=== PATIENT | male | born 1950 | race Caucasian/White ===

== ENCOUNTER 2016-11-15 13:31 | Inpatient (IN) | payer MEDICARE ==
[~2016-11-15] VITALS: Ht 165.1 cm; Wt 66.5 kg
[2016-11-15] VITALS (18 sets, daily range): BP systolic 79–145; BP diastolic 52–64; PULSE 74–93; RESP 15–25; Ht 165.1 cm; Wt 66.5 kg
[2016-11-15] MEDS ORDERED: PANTOPRAZOLE IV 80 MG in SOD CHLORIDE 0.9% 100 ML IVPB STA (13:42)
[2016-11-15] MEDS ORDERED: SOD CHLORIDE 0.9% 1,000 ML IV STA (13:42)
[2016-11-15] MEDS ORDERED: PANTOPRAZOLE IV 80 MG in SOD CHLORIDE 0.9% 100 ML IV STA (13:42)
[2016-11-15 13:56] LABS: ADD SCAN DIFF NO
[2016-11-15 14:00] LABS: BASOPHILS % 0.5 % (0.0-2.0); EOSINOPHILS # 0.1 10^3/ul (0.0-0.5); LYMPHOCYTES # 1.5 10^3/ul (0.8-2.9); LYMPHOCYTES % 19.8 % (15.0-51.0); MEAN CORPUSCULAR HEMOGLOBIN 32.4 pg (29.0-33.0); MEAN CORPUSCULAR HGB CONC 34.4 g/dl (32.0-37.0); MEAN CORPUSCULAR VOLUME 94.1 fl (82.0-101.0); MEAN PLATELET VOLUME 10.3 fl (7.4-10.4); MONOCYTE # 0.5 10^3/ul (0.3-0.9); MONOCYTES % 6.4 % (0.0-11.0); NEUTROPHIL # 5.6 10^3/ul (1.6-7.5); NEUTROPHILS % 71.9 % (39.0-77.0); PLATELET COUNT 336 10^3/UL (140-415); RED CELL DISTRIBUTION WIDTH 12.2 % (11.5-14.5); WHITE BLOOD COUNT 7.8 10^3/ul (4.8-10.8)
[2016-11-15 14:14] LABS: INR 1.05; PARTIAL THROMBOPLASTIN TIME 23.3 Sec (25.0-35.0); PROTIME 13.7 Sec (12.2-14.2); PT RATIO 1.1
--- NOTE | 2016-11-15 14:18 | RADRPT ---
PROCEDURE: XR Chest. CLINICAL INDICATION: chest pain, upper GI bleed TECHNIQUE: Single frontal view of the chest was obtained COMPARISON: None FINDINGS: The heart and mediastinum are within normal limits. The lungs are clear. There is no pleural effusion or pneumothorax. RPTAT: AA IMPRESSION: No acute disease. .Rigo Harper MD, MD Date Time Electronically viewed and signed by .Rigo Harper MD, on 11/15/2016 14:18 .S/
[2016-11-15 14:19] LABS: SODIUM 138 mmol/L (135-144)
[2016-11-15 14:21] LABS: BILIRUBIN,INDIRECT 0.5 mg/dl (0-1.1); BILIRUBIN,TOTAL 0.5 mg/dl (0.2-1.3); CARBON DIOXIDE 23 mmol/L (21-31); CHLORIDE 100 mmol/L (97-110); CREATININE 0.91 mg/dl (0.61-1.24)
[2016-11-15 14:22] LABS: ALANINE AMINOTRANSFERASE 32 IU/L (13-69); ALBUMIN/GLOBULIN RATIO 1.53; ALKALINE PHOSPHATASE 60 IU/L (42-121); ANION GAP 20 (8-16); ASPARTATE AMINO TRANSFERASE 20 IU/L (15-46); BLOOD UREA NITROGEN 47 mg/dl (7-20); CALCIUM 9.1 mg/dl (8.4-10.2); GLUCOSE 299 mg/dl (70-220); TOTAL PROTEIN 6.6 g/dl (6.1-8.1)
[2016-11-15] MEDS ORDERED: METF-382 PO (14:23)
[2016-11-15] MEDS ORDERED: METO-429 PO (14:24)
[2016-11-15] MEDS ORDERED: GLIP-95 PO (14:24)
[2016-11-15] MEDS ORDERED: ASPI-664 PO (14:25)
[2016-11-15 14:34] LABS: TROPONIN-I < 0.012 ng/ml (0.00-0.12)
--- NOTE | 2016-11-15 15:44 | ERA ---
ER Documentation Chief Complaint Date/Time DATE: 11/15/16 TIME: 15:43 Chief Complaint vomiting blood and weakness HPI This is a 63-year-old male who initially told me he does not drink then when the daughter shows up admitted that he drinks at least 6 beers a night. The patient is complaining of some vomiting blood yesterday in the evening 2-3 is bright red. He also had bright red vomit this morning 2. Last vomiting episode was around 7 AM. Says he had black stool yesterday as well. Says he has absolutely no abdominal pain at all no chest pain shortness of breath no dizziness or syncope. He says he takes an aspirin a day but no NSAIDs ROS All systems reviewed and are negative except as per history of present illness. Medications Home Meds Reported Medications Aspirin (Low Dose Aspirin) 81 Mg Tablet.dr, 81 MG PO DAILY, #30 TAB 11/15/16 Metoprolol Tartrate* (Lopressor*) 50 Mg Tab, 50 MG PO BID, #60 TAB 11/15/16 Glipizide* (Glipizide*) 10 Mg Tablet, 10 MG PO BID, TAB 11/15/16 Metformin Hcl* (Metformin Hcl*) 500 Mg Tablet, 1000 MG PO WITH BREAKFAST DINNE, #30 TAB 11/15/16 Allergies Allergies: Coded Allergies: No Known Allergy (Unverified , 11/15/16) PMhx/Soc History of Surgery: Yes (colon re-section- 2013) Anesthesia Reaction: No Hx Neurological Disorder: No Hx Respiratory Disorders: No Hx Cardiac Disorders: Yes (htn) Hx Psychiatric Problems: No Hx Miscellaneous Medical Probl: Yes (colon CA 2013, DM) Hx Alcohol Use: Yes (beer everyday) Hx Substance Use: No Hx Tobacco Use: No Smoking Status: Never smoker FmHx Family History: No coronary disease Physical Exam Vitals Vital Signs Date Time Temp Pulse Resp B/P Pulse Ox O2 Delivery O2 Flow Rate FiO2 11/15/16 16:05 75 17 100/62 100 Room Air 11/15/16 15:17 68 17 96/55 100 Room Air 11/15/16 14:04 72 17 111/61 100 Room Air 11/15/16 13:34 97.6 74 18 106/60 99 Physical Exam Const: Well-developed, well-nourished Head: Atraumatic, normocephalic Eyes: Normal Conjunctiva, PERRLA, EOMI, normal sclera, no nystagmus ENT: Normal External Ears, Nose and Mouth, moist mucus membranes. Neck: Full range of motion. No meningismus, no lymphadenopathy. Resp: Clear to auscultation bilaterally, no wheezing, rhonchi, rales Cardio: Regular rate and rhythm, no murmurs, S1 S2 present Abd: Soft, non tender x 4, non distended. Normal bowel sounds, no guarding or rebound, no pulsitile abdominal masses or bruits Skin: No petechiae or rashes, no ecchymosis , no maculopapular rash Back: No midline or flank tenderness Ext: No cyanosis, or edema, FROM x 4, normal inspection, neurovascularly intact x 4 Neur: Awake and alert, STR 5/5 x 4, sensation intact x 4, no focal findings, cerebellum intact Psych: Normal Mood and Affect Result Diagram: 11/15/16 1345 11/15/16 1345 Results 24 hrs Laboratory Tests Test 11/15/16 13:45 Activated Partial Thromboplast Time 23.3Sec Alanine Aminotransferase (ALT/SGPT) 32IU/L Albumin 4.0g/dl Albumin/Globulin Ratio 1.53 Alkaline Phosphatase 60IU/L Anion Gap 20 Aspartate Amino Transf (AST/SGOT) 20IU/L Basophils # 0.010^3/ul Basophils % 0.5% Blood Urea Nitrogen 47mg/dl Calcium Level 9.1mg/dl Carbon Dioxide Level 23mmol/L Chloride Level 100mmol/L Creatinine 0.91mg/dl Direct Bilirubin 0.00mg/dl Eosinophils # 0.110^3/ul Eosinophils % 1.0% Globulin 2.60g/dl Glucose Level 299mg/dl Hematocrit 32.0% Hemoglobin 11.0g/dl INR International Normalized Ratio 1.05 Indirect Bilirubin 0.5mg/dl Lymphocytes # 1.510^3/ul Lymphocytes % 19.8% Mean Corpuscular Hemoglobin 32.4pg Mean Corpuscular Hemoglobin Concent 34.4g/dl Mean Corpuscular Volume 94.1fl Mean Platelet Volume 10.3fl Monocytes # 0.510^3/ul Monocytes % 6.4% Neutrophils # 5.610^3/ul Neutrophils % 71.9% Nucleated Red Blood Cells # 0.010^3/ul Nucleated Red Blood Cells % 0.0/100WBC Platelet Count 60695^3/UL Potassium Level 5.0mmol/L Prothrombin Time 13.7Sec Prothrombin Time Ratio 1.1 Red Blood Count 3.4010^6/ul Red Cell Distribution Width 12.2% Sodium Level 138mmol/L Total Bilirubin 0.5mg/dl Total Protein 6.6g/dl Troponin I < 0.012ng/ml White Blood Count 7.810^3/ul Current Medications Medications (Trade) Dose Ordered Sig/Emma Route PRN Reason Start Time Stop Time Status Last Admin Dose Admin Sodium Chloride 1,000 ml @ 1,000 mls/hr Q1H STAT IV 11/15/16 13:42 11/15/16 14:41 DC 11/15/16 14:28 Pantoprazole 80 mg/Sodium Chloride 100 ml @ 400 mls/hr ONCE STAT IVPB 11/15/16 13:42 11/15/16 13:56 DC 11/15/16 14:28 Pantoprazole 80 mg/Sodium Chloride 100 ml @ 10 mls/hr ONCE STAT IV 11/15/16 13:42 11/15/16 23:41 11/15/16 15:17 Sodium Chloride 1,000 ml @ 1,000 mls/hr Q1H ONCE IV 11/15/16 16:30 11/15/16 17:29 UNV Octreotide Acetate 50 mcg/ Sodium Chloride 26 ml @ 100 mls/hr Q16M STAT IVPB 11/15/16 16:07 11/15/16 16:22 Octreotide Acetate/Sodium Chloride (Sandostatin/NS) 50 ml @ 5 mls/hr ONCE STAT IV 11/15/16 16:07 11/16/16 02:06 Procedures/MDM PROCEDURE: XR Chest. CLINICAL INDICATION: chest pain, upper GI bleed TECHNIQUE: Single frontal view of the chest was obtained COMPARISON: None FINDINGS: The heart and mediastinum are within normal limits. The lungs are clear. There is no pleural effusion or pneumothorax. RPTAT: AA IMPRESSION: No acute disease. .Rigo Harper MD, MD Date Time Electronically viewed and signed by .Rigo Harper MD, on 11/15/2016 14: 18 .S/ CC: TONI SCHUSTER DO Patient was put on a Protonix drip and octreotide drip. I paged Dr. neri of GI and will get him on board Patient will be admitted for upper endoscopy. His vital signs are currently stable with blood pressure 100/62 and pulse is 77. Departure Diagnosis: Primary Impression: Upper GI bleed Condition: Stable TONI SCHUSTER DO Nov 15, 2016 15:44
[2016-11-15] MEDS ORDERED: OCTREOTIDE 50 MCG in SOD CHLORIDE 0.9% 25 ML IVPB STA (16:07)
[2016-11-15] MEDS ORDERED: OCTREOTIDE 500 MCG in SOD CHLORIDE 0.9% 49 ML IV STA (16:07)
[2016-11-15] MEDS ORDERED: SOD CHLORIDE 0.9% 1,000 ML IV SCH (16:27)
[2016-11-15] MEDS ORDERED: ONDANSETRON 4 MG INJ IV PRN (16:30)
[2016-11-15] MEDS ORDERED: SOD CHLORIDE 0.9% 1,000 ML IV ONE (16:30)
[2016-11-15] MEDS ORDERED: ACETAMINOPHEN 325 MG TAB PO PRN (16:30)
[2016-11-15] MEDS ORDERED: PROPOFOL 40 ML ONE (17:51)
[2016-11-15] MEDS ORDERED: EPHEDrine SULFATE 50 MG/5 ML SYG ONE (17:57)
--- NOTE | 2016-11-15 17:58 | HP ---
DATE OF ADMISSION: 11/15/2016 PRESENTING COMPLAINT: Bloody vomit. HISTORY OF PRESENTING COMPLAINT: Mr. Sanabria is a 63-year-old male who has a past medical history of high blood pressure and diabetes who presents to the emergency room today, brought in by ambulance, after he had passed out on the kitchen floor. The patient reports that over the last 2 days he has been having vomiting and then ends up with bright red blood in his vomit as well as productio n of blackish vomitus. He is a chronic alcoholic and he drinks about 4 beers about 5 days a week. However, the patient does not feel like he has a drinking problem. He has never been told he has li renetta disease from alcoholism. He has never had hematemesis before. However, has had a history of bl ood in his stool and was diagnosed with colon cancer for which he had a colonic resection. He, sunny jackson, did not require chemotherapy or radiation therapy. This was back in 2013. His last visit to [facility] oncologist was 6 months ago where he was given a clean bill of health. PAST MEDICAL HISTORY: 1. Colon cancer. 2. Diabetes. 3. High blood pressure. 4. Dyslipidemia. PAST SURGICAL HISTORY: Colonic resection for colon cancer. ALLERGIES: HE HAS NO KNOWN DRUG ALLERGIES. SOCIAL HISTORY: He has drunk alcohol for as long as he can remember at the quantity described above . He only drinks beer and does not drink hard liquor. Denies tobacco use. Occasionally will smoke a weed joint like once every couple of months just to relax him, but no use of any illicit drugs. REVIEW OF SYSTEMS: A 12-point review of system was done. Pertinent findings as noted in HPI. FAMILY HISTORY: Noncontributory. HOME MEDICATIONS: 1. Glipizide 10 mg p.o. b.i.d. 2. Metoprolol 50 mg p.o. b.i.d. 3. Metformin 1 gram b.i.d. 4. Aspirin 81 daily. The patient receives his care at the [facility]. PHYSICAL EXAMINATION: VITAL SIGNS: Temperature 97.6, pulse 75, respirations 17, blood pressure 100/62, saturations 100% o n room air. GENERAL: He was comfortable, alert and oriented, in no distress. HEENT: Head is normocephalic with equal, round, and reactive pupils. Mucous membranes are moist. Posterior pharynx was clear of erythema and exudate. He did have conjunctival pallor. NECK: Supple without JVD. CHEST: Clear to auscultation with mildly reduced air entry bilaterally. CARDIOVASCULAR: S1 and S2, no murmurs. ABDOMEN: Soft, nontender, nondistended with normoactive bowel sounds present. EXTREMITIES: There is no lower extremity edema. Surgical scar on the abdomen well healed. NEUROLOGIC: He had no focal deficits. SKIN: Devoid of rash or jaundice. PSYCHIATRIC: He was calm, cooperative with exam. LABORATORY VALUES: His hemoglobin was stable at 11.0 with a normocytic normochromic picture. Lydia l white count and normal platelet count. Chemistry: His serum glucose was elevated at 299, anion g ap was mildly elevated and BUN was 47. The rest of his LFTs unremarkable. First troponin is negati ve. Coag profile was not suggestive of a coagulopathy. IMAGING: Chest x-ray done in the emergency room was essentially unremarkable. EKG was normal sinus rhythm with a rate of 81, no evidence of acute ischemic abnormality. ASSESSMENT: 1. A 63-year-old male who presents with two day history of hematemesis. 2. Near syncopal episode secondary to #1. 3. Heavy alcohol use/abuse. 4. Occasional marijuana use. 5. Diabetes mellitus type 2 with suboptimal control. 6. High blood pressure with good control. 7. Reported history of dyslipidemia. 8. History of colon cancer in 2014 status post colonic resection. PLAN: The plan is to admit the patient to a medical surgical floor and get GI consultation for poss ible EGD and may be colonoscopy. Gastroenterology consultation for possible EGD. I will get a stoo l occult blood test done and the patient might require a CT of the abdomen and pelvis. Patient has h istory of colon cancer; however, I would defer to GI on this. For now he will be kept n.p.o. and as such, his on oral hypoglycemics will be put on hold and he will be on a sliding scale regimen only. We will resume his antihypertensive depending on his blood pressure. Hold aspirin for now. Hold anticoagulation for now. Use intravenous Protonix. I do not think the patient requires a Protonix drip right about now and essentially see how he does. We will have a low threshold to start simvast atin if indicated. Also keep a close eye on his coag profile. Plan of care has been discussed with the patient and his son. Questions have been answered. For pr ophylaxis is going to be on SCDs and Protonix. Dictated By: BUCK DERAS MD BA/NTS Conf#: [id number] DID#: [id number]
[2016-11-15] MEDS ORDERED: DEXTROSE 50% 50 ML SYRINGE IV PRN ×2 (18:00)
[2016-11-15] MEDS ORDERED: GLUCAGON 1 MG INJ IM PRN (18:00)
[2016-11-15] MEDS ORDERED: PANTOPRAZOLE 40 MG INJ IV SCH (18:00)
[2016-11-15] MEDS ORDERED: GLUCOSE GEL 15 GRAM TUBE PO PRN ×2 (18:00)
[2016-11-15] MEDS ORDERED: GLUCOSE GEL 15 GRAM TUBE BUCCAL PRN (18:00)
--- NOTE | 2016-11-15 18:10 | CONS ---
Date/Time of Note Date/Time of Note DATE: 11/15/16 TIME: 18:05 Assessment/Plan Assessment/Plan Additional Assessment/Plan Acute anemia Evaluate GI bleed versus chronic iron deficiency vs other etiology Monitor H&H every 8 hours, transfuse 2 units for hemoglobin less than 7.5 Monitor labs Iron profile Continue PPI and Octreotide drips EGD if clinically indicated, pt advised of R/B/A to procedure and provides informed consent to proceed Hypertension Management per Primary Type 2 diabetes Management per Primary Further recommendations depend on clinical course Patient seen in collaboration with Dr. Gómez Consultation Date/Type/Reason Admit Date/Time Nov 15, 2016 at 16:28 Type of Consultation: Gastroenterology Reason for Consultation Anemia Hx of Present Illness Mr. Titus Sanabria is a 63-year-old male that presented to the ED with complaints of hematemesis and melena stools 1 day. Patient reports first episode last night of hematemesis. Patient also reports a few days of melena stools prior to this episode. Patient also reports another episode of hematemesis earlier today. Patient reports drinking a beer prior to episode yesterday. Patient denies fever, chills, nausea, abdominal pain, diarrhea, previous episode, chest pain, and shortness of breath.. Patient has a past medical history of well-controlled hypertension and diabetes. At bedside advised patient of risks/benefits alternatives to EGD and he provides informed consent to proceed with procedure. Past Medical History Medical History: diabetes, hypertension Past Surgical History Past Surgical Hx: no surgical history Social History Alcohol Use: other (Per patient only drinks a few beers per previous note up to 6 beers per day) Smoking Status: Never smoker Exam/Review of Systems Vital Signs Vitals Vital Signs Date Time Temp Pulse Resp B/P Pulse Ox O2 Delivery O2 Flow Rate FiO2 11/15/16 17:56 74 18 113/63 18 Room Air 11/15/16 13:34 97.6 Exam Constitutional: alert, oriented, well developed Psych: nl mood/affect Head: normocephalic Eyes: EOMI, nl conjunctiva, nl lids ENMT: nl external ears & nose, nl lips & teeth, nl nasal mucosa & septum Respiratory: clear to auscultation, normal air movement Cardiovascular: regular rate and rhythm Gastrointestinal: soft, non-tender Musculoskeletal: nl extremities to inspection Neurological: BROOCH AND BRACELET MAKER II-XII intact Results Result Diagram: 11/15/16 1345 11/15/16 1345 Results 24 hrs Laboratory Tests Test 11/15/16 13:45 Activated Partial Thromboplast Time 23.3 L Alanine Aminotransferase (ALT/SGPT) 32 Albumin 4.0 Albumin/Globulin Ratio 1.53 Alkaline Phosphatase 60 Anion Gap 20 H Aspartate Amino Transf (AST/SGOT) 20 Basophils # 0.0 Basophils % 0.5 Blood Urea Nitrogen 47 H Calcium Level 9.1 Carbon Dioxide Level 23 Chloride Level 100 Creatinine 0.91 Direct Bilirubin 0.00 Eosinophils # 0.1 Eosinophils % 1.0 Globulin 2.60 Glucose Level 299 H Hematocrit 32.0 L Hemoglobin 11.0 L INR International Normalized Ratio 1.05 Indirect Bilirubin 0.5 Lymphocytes # 1.5 Lymphocytes % 19.8 Mean Corpuscular Hemoglobin 32.4 Mean Corpuscular Hemoglobin Concent 34.4 Mean Corpuscular Volume 94.1 Mean Platelet Volume 10.3 Monocytes # 0.5 Monocytes % 6.4 Neutrophils # 5.6 Neutrophils % 71.9 Nucleated Red Blood Cells # 0.0 Nucleated Red Blood Cells % 0.0 Platelet Count 336 Potassium Level 5.0 Prothrombin Time 13.7 Prothrombin Time Ratio 1.1 Red Blood Count 3.40 L Red Cell Distribution Width 12.2 Sodium Level 138 Total Bilirubin 0.5 Total Protein 6.6 Troponin I < 0.012 White Blood Count 7.8 Medications Medications Current Medications Sodium Chloride (NS) 1,000 ml @ 80 mls/hr [id number] IV ; Start 11/15/16 at 16:27 ; Stop 11/16/16 at 04:56 Pantoprazole 40 mg 40 mg BID@06,18 IV ; Start 11/15/16 at 18:00 Sodium Chloride (NS) 1,000 ml @ 100 mls/hr Q10H IV ; Start 11/15/16 at 17:00 Insulin Aspart (Novolog Insulin Pen) NOVOLOG *MODERATE* ALGORI... Q4 SC ; Start 11/15/16 at 17:00 Metoprolol Tartrate (Lopressor) 50 mg BID PO ; Start 11/15/16 at 21:00 Miscellaneous Information 1 ea NOTE XX ; Start 11/15/16 at 18:00 Glucose (Glutose) 15 gm Q15M PRN PO DECREASED GLUCOSE; Start 11/15/16 at 18:00 Glucose (Glutose) 22.5 gm Q15M PRN PO DECREASED GLUCOSE; Start 11/15/16 at 18: 00 Dextrose (D50w Syringe) 25 ml Q15M PRN IV DECREASED GLUCOSE; Start 11/15/16 at 18:00 Dextrose (D50w Syringe) 50 ml Q15M PRN IV DECREASED GLUCOSE; Start 11/15/16 at 18:00 Glucagon (Glucagen) 1 mg Q15M PRN IM DECREASED GLUCOSE; Start 11/15/16 at 18:00 Glucose (Glutose) 15 gm Q15M PRN BUCCAL DECREASED GLUCOSE; Start 11/15/16 at 18 :00 FRANNY CORRIGAN Nov 15, 2016 18:10
[2016-11-15] MEDS: INSULIN ASPART [NOVOLOG] 3 ML PEN SC SCH ×2 (19:48→20:05)
[2016-11-15] MEDS: SOD CHLORIDE 0.9% 1,000 ML IV SCH (20:15)
[2016-11-15] MEDS: METOPROLOL 50 MG TAB PO SCH (20:16)
[2016-11-15] MEDS: PANTOPRAZOLE IV 80 MG in SOD CHLORIDE 0.9% 100 ML IV SCH (21:01)
[2016-11-16] VITALS (12 sets, daily range): BP systolic 104–146; BP diastolic 53–65; PULSE 63–76; RESP 15–19
[2016-11-16] MEDS: METOCLOPRAMIDE 10 MG INJ IV SCH ×4 (00:17→17:12)
[2016-11-16] MEDS: INSULIN ASPART [NOVOLOG] 3 ML PEN SC SCH ×6 (00:26→20:28)
[2016-11-16 01:07] LABS: HEMOGLOBIN 7.3 g/dl (14.0-18.0)
[2016-11-16] MEDS: SOD CHLORIDE 0.9% 1,000 ML IV SCH ×3 (03:00→14:21)
[2016-11-16] MEDS: PANTOPRAZOLE IV 80 MG in SOD CHLORIDE 0.9% 100 ML IV SCH ×2 (04:50→14:47)
[2016-11-16 06:18] LABS: HEMATOCRIT 20.8 % (42.0-52.0); HEMOGLOBIN 7.1 g/dl (14.0-18.0)
--- NOTE | 2016-11-16 06:26 | GILP ---
DATE OF PROCEDURE: DATE: ____ NAME OF PROCEDURE: Esophagogastroduodenoscopy with endoclip placement. SURGEON: Vivien Gómez MD. PREOPERATIVE DIAGNOSIS: ____ POSTOPERATIVE DIAGNOSIS: ____ HISTORY AND INDICATIONS: ____ PREMEDICATION: Monitored anesthesia care by anesthesiologist. INSTRUMENT USED: Olympus panendoscope. TECHNIQUE: After informed consent, with the patient/relatives understanding the procedure, its indic ations, potential risks and complications, including but not limited to: allergic reaction, bleeding , perforation or infection, and after all pertinent questions were answered to the patients satisfac tion, the patient/relatives signed witnessed informed consent. Following this, premedication was administered slowly IV push under careful cardiovascular and respi ratory monitoring with pulse oximetry, automatic blood pressure and surveillance system monitor. Once the sedative effect was achieved the patient was place in the left lateral decubitus, the panen doscope was introduced and advanced under visual control. Careful examination of the upper gastrointestinal tract, both on insertion as well as withdrawal of the instrument disclosed the following findings: ESOPHAGUS: The esophagus shows erythema and edema in the distal esophagus, superficial ulceration i s also present. There is a clear Keerthi-Early tear with a clot. No active bleeding is present. STOMACH: Upon entrance to the stomach, air was insufflated, the gastric escamilla distended normally. There was old blood in the greater curvature of the stomach which could not be evacuated entirely. Extensive lavage was applied. No gross lesions identified in the stomach. PYLORUS: The pylorus appears patent and within normal limits. DUODENUM: Unremarkable. The duodenal bulb and second portion of duodenum with no bleeding or lesio n identified. At this point, the instrument was brought back into the area of the esophagus and an endoclip was ap plied to the area of Keerthi-Early securing the area with no residual bleeding. The instrument was then withdrawn, the patient tolerated the procedure well and was transfer out of the endoscopy suite awake, and in good condition to continue recovery under observation IMPRESSION: Keerthi-Early tear post endoscopic endoclip placement. PLAN: 1. The patient will be placed on Protonix and octreotide drips. 2. Reglan 10 mg IV push. 3. Monitor H and H and transfuse as necessary. Dictated By: VIVIEN GÓMEZ MS/PRAKASH Conf#: [id number] DID#: [id number]
[2016-11-16] MEDS ORDERED: SOD CHLORIDE 0.9% 250 ML IV* ONE (08:42)
[2016-11-16] MEDS: METOPROLOL 50 MG TAB PO SCH ×2 (09:05→20:26)
[2016-11-16 10:19] LABS: ADD SCAN DIFF NO
[2016-11-16 10:24] LABS: BASOPHILS % 0.4 % (0.0-2.0); EOSINOPHILS # 0.1 10^3/ul (0.0-0.5); EOSINOPHILS % 1.6 % (0.0-7.0); HEMATOCRIT 20.4 % (42.0-52.0); LYMPHOCYTES # 1.5 10^3/ul (0.8-2.9); LYMPHOCYTES % 30.7 % (15.0-51.0); MEAN CORPUSCULAR HEMOGLOBIN 32.7 pg (29.0-33.0); MEAN CORPUSCULAR HGB CONC 34.3 g/dl (32.0-37.0); MEAN CORPUSCULAR VOLUME 95.3 fl (82.0-101.0); MEAN PLATELET VOLUME 10.3 fl (7.4-10.4); MONOCYTE # 0.5 10^3/ul (0.3-0.9); MONOCYTES % 10.3 % (0.0-11.0); NEUTROPHIL # 2.8 10^3/ul (1.6-7.5); NEUTROPHILS % 56.8 % (39.0-77.0); PLATELET COUNT 221 10^3/UL (140-415); RED BLOOD COUNT 2.14 10^6/ul (4.70-6.10); RED CELL DISTRIBUTION WIDTH 12.5 % (11.5-14.5)
[2016-11-16 10:33] LABS: ALBUMIN 2.8 g/dl (3.3-4.9)
[2016-11-16 10:34] LABS: INR 1.04; POTASSIUM 4.1 mmol/L (3.5-5.1); PROTIME 13.6 Sec (12.2-14.2); PT RATIO 1.1
[2016-11-16 10:36] LABS: CREATININE 0.8 mg/dl (0.61-1.24)
[2016-11-16 10:37] LABS: CALCIUM 7.9 mg/dl (8.4-10.2); CHOL/HDL RATIO 2.8 RATIO; MAGNESIUM 1.7 mg/dl (1.7-2.5); PHOSPHORUS 1.9 mg/dl (2.5-4.9)
--- NOTE | 2016-11-16 11:40 | PN ---
Date/Time of Note Date/Time of Note DATE: 11/16/16 TIME: 11:32 Assessment/Plan VTE Prophylaxis VTE Prophylaxis Intervention: SCD's Lines/Catheters IV [facility]from [facility]): Peripheral IV Urinary Cath still in place: No Assessment/Plan Assessment/Plan 1. Acute Upper GI bleeding 2. Near syncopal episode secondary to #1. 3. Heavy alcohol use/abuse. 4. Occasional marijuana use. 5. Diabetes mellitus type 2 with suboptimal control. 6. High blood pressure with good control. 7. Reported history of dyslipidemia. 8. History of colon cancer in 2014 status post colonic resection. Plan: Protonix gtt- Hb dropped to 7.0- plan is to tranfuse 2 units PRBC tolerating diet, change accucheck to AC and HS S/p GI consult IVF as ordered - decrease rate to 75 cc/hr SCD for DVT prophylaxis Subjective 24 Hr Interval Summary Free Text/Dictation pt stable, on IV protonix drip , Exam/Review of Systems Vital Signs Vitals Vital Signs Date Time Temp Pulse Resp B/P Pulse Ox O2 Delivery O2 Flow Rate FiO2 11/16/16 11:30 98.8 64 18 134/63 99 11/16/16 07:48 Room Air 11/15/16 18:03 5 Intake and Output 11/15/16 11/15/16 11/16/16 15:00 23:00 07:00 Intake Total 2100 ml 1310 ml Balance 2100 ml 1310 ml Exam GENERAL: He was comfortable, alert and oriented, in no distress. NECK: Supple without JVD. CHEST: Clear to auscultation with mildly reduced air entry bilaterally. CARDIOVASCULAR: S1 and S2, no murmurs. ABDOMEN: Soft, nontender, nondistended with normoactive bowel sounds present. EXTREMITIES: There is no lower extremity edema. Surgical scar on the abdomen well healed. NEUROLOGIC: He had no focal deficits. SKIN: Devoid of rash or jaundice. PSYCHIATRIC: He was calm, cooperative with exam. Results Result Diagram: 11/16/16 0945 11/16/16 0945 Results 24 hrs Laboratory Tests Test 11/15/16 13:45 11/15/16 18:42 11/16/16 00:19 11/16/16 01:00 Activated Partial Thromboplast Time 23.3 L Alanine Aminotransferase (ALT/SGPT) 32 Albumin 4.0 Albumin/Globulin Ratio 1.53 Alkaline Phosphatase 60 Anion Gap 20 H Aspartate Amino Transf (AST/SGOT) 20 Basophils # 0.0 Basophils % 0.5 Blood Urea Nitrogen 47 H Calcium Level 9.1 Carbon Dioxide Level 23 Chloride Level 100 Creatinine 0.91 Direct Bilirubin 0.00 Eosinophils # 0.1 Eosinophils % 1.0 Globulin 2.60 Glucose Level 299 H Hematocrit 32.0 L 21.0 #L Hemoglobin 11.0 L 7.3 #L INR International Normalized Ratio 1.05 Indirect Bilirubin 0.5 Lymphocytes # 1.5 Lymphocytes % 19.8 Mean Corpuscular Hemoglobin 32.4 Mean Corpuscular Hemoglobin Concent 34.4 Mean Corpuscular Volume 94.1 Mean Platelet Volume 10.3 Monocytes # 0.5 Monocytes % 6.4 Neutrophils # 5.6 Neutrophils % 71.9 Nucleated Red Blood Cells # 0.0 Nucleated Red Blood Cells % 0.0 Platelet Count 336 Potassium Level 5.0 Prothrombin Time 13.7 Prothrombin Time Ratio 1.1 Red Blood Count 3.40 L Red Cell Distribution Width 12.2 Sodium Level 138 Total Bilirubin 0.5 Total Protein 6.6 Troponin I < 0.012 White Blood Count 7.8 Bedside Glucose 218 161 Test 11/16/16 05:25 11/16/16 06:21 11/16/16 07:45 11/16/16 09:45 Hematocrit 20.8 L 20.4 L Hemoglobin 7.1 L 7.0 L Bedside Glucose 320 H 276 H Activated Partial Thromboplast Time 25.0 Albumin 2.8 #L Anion Gap 13 # Basophils # 0.0 Basophils % 0.4 Blood Urea Nitrogen 35 #H Calcium Level 7.9 L Carbon Dioxide Level 24 Chloride Level 108 Cholesterol Level 84 L Cholesterol/HDL Ratio 2.8 Creatinine 0.80 Eosinophils # 0.1 Eosinophils % 1.6 Glucose Level 147 # HDL Cholesterol 30 Hemoglobin A1c 7.7 H INR International Normalized Ratio 1.04 LDL Cholesterol, Calculated 23 Lymphocytes # 1.5 Lymphocytes % 30.7 Magnesium Level 1.7 Mean Corpuscular Hemoglobin 32.7 Mean Corpuscular Hemoglobin Concent 34.3 Mean Corpuscular Volume 95.3 Mean Platelet Volume 10.3 Monocytes # 0.5 Monocytes % 10.3 Neutrophils # 2.8 Neutrophils % 56.8 Nucleated Red Blood Cells # 0.0 Nucleated Red Blood Cells % 0.0 Phosphorus Level 1.9 L Platelet Count 221 # Potassium Level 4.1 Prothrombin Time 13.6 Prothrombin Time Ratio 1.1 Red Blood Count 2.14 #L Red Cell Distribution Width 12.5 Sodium Level 141 Triglycerides Level 154 H White Blood Count 5.0 # Medications Medications Current Medications Sodium Chloride (NS) 1,000 ml @ 100 mls/hr Q10H IV Last administered on 06:29; Admin Dose 100 MLS/HR; Start 11/15/16 at 17:00 Insulin Aspart (Novolog Insulin Pen) NOVOLOG *MODERATE* ALGORI... Q4 SC Last administered on 11/16/16 09:08; Admin Dose 8 UNIT; Start 11/15/16 at 17:00 Metoprolol Tartrate (Lopressor) 50 mg BID PO Last administered on 11/16/16 09: 05; Admin Dose 50 MG; Start 11/15/16 at 21:00 Miscellaneous Information 1 ea NOTE XX ; Start 11/15/16 at 18:00 Glucose (Glutose) 15 gm Q15M PRN PO DECREASED GLUCOSE; Start 11/15/16 at 18:00 Glucose (Glutose) 22.5 gm Q15M PRN PO DECREASED GLUCOSE; Start 11/15/16 at 18: 00 Dextrose (D50w Syringe) 25 ml Q15M PRN IV DECREASED GLUCOSE; Start 11/15/16 at 18:00 Dextrose (D50w Syringe) 50 ml Q15M PRN IV DECREASED GLUCOSE; Start 11/15/16 at 18:00 Glucagon (Glucagen) 1 mg Q15M PRN IM DECREASED GLUCOSE; Start 11/15/16 at 18:00 Glucose 15 gm 15 gm Q15M PRN BUCCAL DECREASED GLUCOSE; Start 11/15/16 at 18:00 Pantoprazole/ Sodium Chloride (Protonix Iv/NS) 100 ml @ 10 mls/hr Q10H IV Last administered on 11/16/16 04:50; Admin Dose 10 MLS/HR; Start 11/15/16 at 18 :30 Metoclopramide HCl (Reglan) 10 mg Q6 IV Last administered on 11/16/16 06:23; Admin Dose 10 MG; Start 11/16/16 at 00:00 ALONDRA TOBIAS MD Nov 16, 2016 11:40
[2016-11-17] VITALS (12 sets, daily range): BP systolic 120–154; BP diastolic 59–67; PULSE 62–85; RESP 18–20
[2016-11-17] MEDS: PANTOPRAZOLE IV 80 MG in SOD CHLORIDE 0.9% 100 ML IV SCH ×4 (00:12→21:07)
[2016-11-17] MEDS: METOCLOPRAMIDE 10 MG INJ IV SCH ×4 (00:12→17:56)
[2016-11-17] MEDS: SOD CHLORIDE 0.9% 1,000 ML IV SCH ×2 (04:02→10:21)
[2016-11-17] MEDS: METOPROLOL 50 MG TAB PO SCH ×2 (08:17→20:55)
[2016-11-17] MEDS: INSULIN ASPART [NOVOLOG] 3 ML PEN SC SCH ×4 (08:21→20:59)
[2016-11-17 09:03] LABS: ADD SCAN DIFF NO
[2016-11-17 09:06] LABS: BASOPHILS % 0.6 % (0.0-2.0); EOSINOPHILS # 0.2 10^3/ul (0.0-0.5); EOSINOPHILS % 3.1 % (0.0-7.0); HEMATOCRIT 26.2 % (42.0-52.0); LYMPHOCYTES # 1.9 10^3/ul (0.8-2.9); LYMPHOCYTES % 35.6 % (15.0-51.0); MEAN CORPUSCULAR HGB CONC 34.4 g/dl (32.0-37.0); MEAN CORPUSCULAR VOLUME 93.2 fl (82.0-101.0); MEAN PLATELET VOLUME 11.5 fl (7.4-10.4); MONOCYTE # 0.5 10^3/ul (0.3-0.9); NEUTROPHIL # 2.7 10^3/ul (1.6-7.5); NEUTROPHILS % 50.5 % (39.0-77.0); RED BLOOD COUNT 2.81 10^6/ul (4.70-6.10); RED CELL DISTRIBUTION WIDTH 13.1 % (11.5-14.5); WHITE BLOOD COUNT 5.4 10^3/ul (4.8-10.8)
[2016-11-17 09:14] LABS: PLATELET COUNT 168 10^3/UL (140-415)
[2016-11-17 09:28] LABS: ALBUMIN 3.3 g/dl (3.3-4.9); POTASSIUM 4.7 mmol/L (3.5-5.1)
[2016-11-17 09:30] LABS: CREATININE 0.67 mg/dl (0.61-1.24)
[2016-11-17 09:31] LABS: PHOSPHORUS 2.6 mg/dl (2.5-4.9)
--- NOTE | 2016-11-17 10:05 | CONS ---
Date/Time of Note Date/Time of Note DATE: 11/17/16 TIME: 10:03 Assessment/Plan Assessment/Plan Chief Complaint/Hosp Course Mr. Titus Sanabria is a 63-year-old male that presented to the ED with complaints of hematemesis and melena stools 1 day. Patient reports first episode last night of hematemesis. Patient also reports a few days of melena stools prior to this episode. Patient also reports another episode of hematemesis earlier today. Patient reports drinking a beer prior to episode yesterday. Patient denies fever, chills, nausea, abdominal pain, diarrhea, previous episode, chest pain, and shortness of breath.. Patient has a past medical history of well-controlled hypertension and diabetes. At bedside advised patient of risks/benefits alternatives to EGD and he provides informed consent to proceed with procedure. Problems: Additional Assessment/Plan Acute anemia Evaluate GI bleed versus chronic iron deficiency vs other etiology Monitor H&H every 8 hours, transfuse 2 units for hemoglobin less than 7.5 Monitor labs Continue PPI drips Continue Reglan 10 mg IV push every 6 hours EGD: 1. Keerthi-Early tear post endoscopic endoclip placement. Hypertension Management per Primary Type 2 diabetes Management per Primary Further recommendations depend on clinical course Patient seen in collaboration with Dr. Gómez Consultation Date/Type/Reason Admit Date/Time Nov 15, 2016 at 16:28 Initial Consult Date Type of Consultation: Gastroenterology 24 HR Interval Summary Free Text/Dictation Tolerating diet Hemoglobin stable Continue PPI drip and Reglan Can transition to PPI twice daily p.o. if hemoglobin stays stable Exam/Review of Systems Vital Signs Vitals Vital Signs Date Time Temp Pulse Resp B/P Pulse Ox O2 Delivery O2 Flow Rate FiO2 11/17/16 08:16 62 11/17/16 07:46 98.5 20 135/65 98 11/17/16 04:00 Room Air 11/15/16 18:03 5 Intake and Output 11/16/16 11/16/16 11/17/16 15:00 23:00 07:00 Intake Total 700 ml 1790 ml 1100 ml Output Total 700 ml 930 ml 500 ml Balance 0 ml 860 ml 600 ml Exam Constitutional: alert, oriented, well developed Psych: nl mood/affect Head: normocephalic Eyes: EOMI, nl conjunctiva, nl lids ENMT: nl external ears & nose, nl lips & teeth, nl nasal mucosa & septum Respiratory: clear to auscultation, normal air movement Cardiovascular: regular rate and rhythm Gastrointestinal: soft, non-tender Musculoskeletal: nl extremities to inspection Neurological: [employer] II-XII intact Results Result Diagram: 11/17/16 0835 11/17/16 0835 Results 24 hrs Laboratory Tests Test 11/16/16 11:55 11/16/16 17:10 11/16/16 20:25 11/17/16 07:34 Bedside Glucose 76 202 227 H 150 Test 11/17/16 08:35 Albumin 3.3 Anion Gap 15 Basophils # 0.0 Basophils % 0.6 Blood Urea Nitrogen 16 # Calcium Level 8.0 L Carbon Dioxide Level 21 Chloride Level 107 Creatinine 0.67 Eosinophils # 0.2 Eosinophils % 3.1 Glucose Level 169 Hematocrit 26.2 #L Hemoglobin 9.0 #L Lymphocytes # 1.9 Lymphocytes % 35.6 Mean Corpuscular Hemoglobin 32.0 Mean Corpuscular Hemoglobin Concent 34.4 Mean Corpuscular Volume 93.2 Mean Platelet Volume 11.5 H Monocytes # 0.5 Monocytes % 10.0 Neutrophils # 2.7 Neutrophils % 50.5 Nucleated Red Blood Cells # 0.0 Nucleated Red Blood Cells % 0.0 Phosphorus Level 2.6 Platelet Count 168 # Potassium Level 4.7 Red Blood Count 2.81 #L Red Cell Distribution Width 13.1 Sodium Level 138 White Blood Count 5.4 Medications Medications Current Medications Sodium Chloride (NS) 1,000 ml @ 50 mls/hr Q20H IV Last administered on 04:02; Admin Dose 50 MLS/HR; Start 11/15/16 at 17:00 Metoprolol Tartrate (Lopressor) 50 mg BID PO Last administered on 11/17/16 08: 17; Admin Dose 50 MG; Start 11/15/16 at 21:00 Miscellaneous Information 1 ea NOTE XX ; Start 11/15/16 at 18:00 Glucose (Glutose) 15 gm Q15M PRN PO DECREASED GLUCOSE; Start 11/15/16 at 18:00 Glucose (Glutose) 22.5 gm Q15M PRN PO DECREASED GLUCOSE; Start 11/15/16 at 18: 00 Dextrose (D50w Syringe) 25 ml Q15M PRN IV DECREASED GLUCOSE; Start 11/15/16 at 18:00 Dextrose (D50w Syringe) 50 ml Q15M PRN IV DECREASED GLUCOSE; Start 11/15/16 at 18:00 Glucagon (Glucagen) 1 mg Q15M PRN IM DECREASED GLUCOSE; Start 11/15/16 at 18:00 Glucose 15 gm 15 gm Q15M PRN BUCCAL DECREASED GLUCOSE; Start 11/15/16 at 18:00 Pantoprazole/ Sodium Chloride (Protonix Iv/NS) 100 ml @ 10 mls/hr Q10H IV Last administered on 11/17/16 00:12; Admin Dose 10 MLS/HR; Start 11/15/16 at 18 :30 Metoclopramide HCl (Reglan) 10 mg Q6 IV Last administered on 11/17/16 06:14; Admin Dose 10 MG; Start 11/16/16 at 00:00 FRANNY CORRIGAN Nov 17, 2016 10:04 Metoclopramide HCl (Reglan) 10 mg Q6 IV Last administered on 11/17/16 06:14; Admin Dose 10 MG; Start 11/16/16 at 00:00 FRANNY CORRIGAN Nov 17, 2016 10:04
--- NOTE | 2016-11-17 22:26 | PN ---
Date/Time of Note Date/Time of Note DATE: 11/17/16 TIME: 22:24 Assessment/Plan VTE Prophylaxis VTE Prophylaxis Intervention: SCD's Lines/Catheters [facility] Saline Lock Urinary Cath still in place: No Assessment/Plan Assessment/Plan 1. Acute Upper GI bleeding 2. Near syncopal episode secondary to #1. 3. Heavy alcohol use/abuse. 4. Occasional marijuana use. 5. Diabetes mellitus type 2 with suboptimal control. 6. High blood pressure with good control. 7. Reported history of dyslipidemia. 8. History of colon cancer in 2014 status post colonic resection. Plan: s/p 2 units PRBC on protnix gtt tolerating diet, change accucheck to AC and HS S/p GI consult SCD for DVT prophylaxis Subjective 24 Hr Interval Summary Free Text/Dictation pt is on Protonix gtt Exam/Review of Systems Vital Signs Vitals Vital Signs Date Time Temp Pulse Resp B/P Pulse Ox O2 Delivery O2 Flow Rate FiO2 11/17/16 20:08 68 11/17/16 19:56 98.5 18 144/67 99 Room Air 11/15/16 18:03 5 Intake and Output 11/16/16 11/16/16 11/17/16 15:00 23:00 07:00 Intake Total 700 ml 1790 ml 1100 ml Output Total 700 ml 930 ml 500 ml Balance 0 ml 860 ml 600 ml Exam GENERAL: He was comfortable, alert and oriented, in no distress. NECK: Supple without JVD. CHEST: Clear to auscultation with mildly reduced air entry bilaterally. CARDIOVASCULAR: S1 and S2, no murmurs. ABDOMEN: Soft, nontender, nondistended with normoactive bowel sounds present. EXTREMITIES: There is no lower extremity edema. Surgical scar on the abdomen well healed. NEUROLOGIC: He had no focal deficits. SKIN: Devoid of rash or jaundice. PSYCHIATRIC: He was calm, cooperative with exam. Results Result Diagram: 11/17/16 0835 11/17/16 0835 Results 24 hrs Laboratory Tests Test 11/17/16 07:34 11/17/16 08:35 11/17/16 12:06 11/17/16 17:11 Bedside Glucose 150 288 H 212 Albumin 3.3 Anion Gap 15 Basophils # 0.0 Basophils % 0.6 Blood Urea Nitrogen 16 # Calcium Level 8.0 L Carbon Dioxide Level 21 Chloride Level 107 Creatinine 0.67 Eosinophils # 0.2 Eosinophils % 3.1 Glucose Level 169 Hematocrit 26.2 #L Hemoglobin 9.0 #L Lymphocytes # 1.9 Lymphocytes % 35.6 Mean Corpuscular Hemoglobin 32.0 Mean Corpuscular Hemoglobin Concent 34.4 Mean Corpuscular Volume 93.2 Mean Platelet Volume 11.5 H Monocytes # 0.5 Monocytes % 10.0 Neutrophils # 2.7 Neutrophils % 50.5 Nucleated Red Blood Cells # 0.0 Nucleated Red Blood Cells % 0.0 Phosphorus Level 2.6 Platelet Count 168 # Potassium Level 4.7 Red Blood Count 2.81 #L Red Cell Distribution Width 13.1 Sodium Level 138 White Blood Count 5.4 Test 11/17/16 20:53 Bedside Glucose 343 H Medications Medications Current Medications Sodium Chloride (NS) 1,000 ml @ 50 mls/hr Q20H IV Last administered on 04:02; Admin Dose 50 MLS/HR; Start 11/15/16 at 17:00 Metoprolol Tartrate (Lopressor) 50 mg BID PO Last administered on 11/17/16 20: 55; Admin Dose 50 MG; Start 11/15/16 at 21:00 Miscellaneous Information 1 ea NOTE XX ; Start 11/15/16 at 18:00 Glucose (Glutose) 15 gm Q15M PRN PO DECREASED GLUCOSE; Start 11/15/16 at 18:00 Glucose (Glutose) 22.5 gm Q15M PRN PO DECREASED GLUCOSE; Start 11/15/16 at 18: 00 Dextrose (D50w Syringe) 25 ml Q15M PRN IV DECREASED GLUCOSE; Start 11/15/16 at 18:00 Dextrose (D50w Syringe) 50 ml Q15M PRN IV DECREASED GLUCOSE; Start 11/15/16 at 18:00 Glucagon (Glucagen) 1 mg Q15M PRN IM DECREASED GLUCOSE; Start 11/15/16 at 18:00 Glucose 15 gm 15 gm Q15M PRN BUCCAL DECREASED GLUCOSE; Start 11/15/16 at 18:00 Pantoprazole/ Sodium Chloride (Protonix Iv/NS) 100 ml @ 10 mls/hr Q10H IV Last administered on 11/17/16 21:07; Admin Dose 10 MLS/HR; Start 11/15/16 at 18 :30 Metoclopramide HCl (Reglan) 10 mg Q6 IV Last administered on 11/17/16t 17:56; Admin Dose 10 MG; Start 11/16/16 at 00:00 ALONDRA TOBIAS MD Nov 17, 2016 22:26
[2016-11-18] VITALS (8 sets, daily range): BP systolic 136–149; BP diastolic 65–70; PULSE 56–65; RESP 18
[2016-11-18] MEDS: METOCLOPRAMIDE 10 MG INJ IV SCH ×4 (01:17→17:28)
[2016-11-18] MEDS: SOD CHLORIDE 0.9% 1,000 ML IV SCH (01:24)
[2016-11-18] MEDS: PANTOPRAZOLE IV 80 MG in SOD CHLORIDE 0.9% 100 ML IV SCH (06:22)
[2016-11-18 07:42] LABS: ADD SCAN DIFF NO
[2016-11-18 07:49] LABS: BASOPHILS % 0.5 % (0.0-2.0); EOSINOPHILS # 0.2 10^3/ul (0.0-0.5); EOSINOPHILS % 3.5 % (0.0-7.0); HEMATOCRIT 24.3 % (42.0-52.0); HEMOGLOBIN 8.6 g/dl (14.0-18.0); LYMPHOCYTES # 1.8 10^3/ul (0.8-2.9); LYMPHOCYTES % 32.2 % (15.0-51.0); MEAN CORPUSCULAR HEMOGLOBIN 32.5 pg (29.0-33.0); MEAN CORPUSCULAR HGB CONC 35.4 g/dl (32.0-37.0); MEAN CORPUSCULAR VOLUME 91.7 fl (82.0-101.0); MEAN PLATELET VOLUME 10.4 fl (7.4-10.4); MONOCYTE # 0.6 10^3/ul (0.3-0.9); MONOCYTES % 10.3 % (0.0-11.0); NEUTROPHILS % 53.3 % (39.0-77.0); PLATELET COUNT 206 10^3/UL (140-415); RED BLOOD COUNT 2.65 10^6/ul (4.70-6.10); RED CELL DISTRIBUTION WIDTH 12.9 % (11.5-14.5); WHITE BLOOD COUNT 5.7 10^3/ul (4.8-10.8)
[2016-11-18 08:21] LABS: ALBUMIN 3.4 g/dl (3.3-4.9); CALCIUM 8.4 mg/dl (8.4-10.2); CREATININE 0.66 mg/dl (0.61-1.24); PHOSPHORUS 2.9 mg/dl (2.5-4.9); POTASSIUM 3.9 mmol/L (3.5-5.1)
[2016-11-18] MEDS: METOPROLOL 50 MG TAB PO SCH ×2 (08:29→21:30)
[2016-11-18] MEDS: INSULIN ASPART [NOVOLOG] 3 ML PEN SC SCH ×5 (08:33→21:31)
[2016-11-18] MEDS: INSULIN GLARGINE [LANtus] 3 ML PEN SC SCH (13:30)
--- NOTE | 2016-11-18 16:37 | PN ---
Date/Time of Note Date/Time of Note DATE: 11/18/16 TIME: 16:35 Assessment/Plan VTE Prophylaxis VTE Prophylaxis Intervention: SCD's Lines/Catheters IV C[facility]ter Type (from [facility]): Saline Lock Urinary Cath still in place: No Assessment/Plan Assessment/Plan 1. Acute Upper GI bleeding 2. Near syncopal episode secondary to #1. 3. Heavy alcohol use/abuse. 4. Occasional marijuana use. 5. Diabetes mellitus type 2 with suboptimal control. 6. High blood pressure with good control. 7. Reported history of dyslipidemia. 8. History of colon cancer in 2014 status post colonic resection. Plan: s/p 2 units PRBC on protnix gtt - will switch to IV protonix 40mg BID tolerating diet, change accucheck to AC and HS S/p GI consult SCD for DVT prophylaxis Subjective 24 Hr Interval Summary Free Text/Dictation no more Upper Gi bleeding, Hb stable, Exam/Review of Systems Vital Signs Vitals Vital Signs Date Time Temp Pulse Resp B/P Pulse Ox O2 Delivery O2 Flow Rate FiO2 11/18/16 12:28 60 11/18/16 11:01 98.1 18 145/66 98 11/18/16 04:00 Room Air 11/15/16 18:03 5 Intake and Output 11/17/16 11/17/16 11/18/16 15:00 23:00 07:00 Intake Total 1110 ml 800 ml Balance 1110 ml 800 ml Exam GENERAL: He was comfortable, alert and oriented, in no distress. NECK: Supple without JVD. CHEST: Clear to auscultation with mildly reduced air entry bilaterally. CARDIOVASCULAR: S1 and S2, no murmurs. ABDOMEN: Soft, nontender, nondistended with normoactive bowel sounds present. EXTREMITIES: There is no lower extremity edema. Surgical scar on the abdomen well healed. NEUROLOGIC: He had no focal deficits. SKIN: Devoid of rash or jaundice. PSYCHIATRIC: He was calm, cooperative with exam. Results Result Diagram: 11/18/1628 11/18/16727 Results 24 hrs Laboratory Tests Test 11/17/16 17:11 11/17/16 20:53 11/18/16 07:28 11/18/16 07:40 Bedside Glucose 212 343 H 211 Albumin 3.4 Anion Gap 15 Basophils # 0.0 Basophils % 0.5 Blood Urea Nitrogen 11 Calcium Level 8.4 Carbon Dioxide Level 23 Chloride Level 106 Creatinine 0.66 Eosinophils # 0.2 Eosinophils % 3.5 Glucose Level 177 Hematocrit 24.3 L Hemoglobin 8.6 L Lymphocytes # 1.8 Lymphocytes % 32.2 Mean Corpuscular Hemoglobin 32.5 Mean Corpuscular Hemoglobin Concent 35.4 Mean Corpuscular Volume 91.7 Mean Platelet Volume 10.4 Monocytes # 0.6 Monocytes % 10.3 Neutrophils # 3.0 Neutrophils % 53.3 Nucleated Red Blood Cells # 0.0 Nucleated Red Blood Cells % 0.0 Phosphorus Level 2.9 Platelet Count 206 # Potassium Level 3.9 Red Blood Count 2.65 L Red Cell Distribution Width 12.9 Sodium Level 140 White Blood Count 5.7 Test 11/18/16 11:47 Bedside Glucose 421 *H Medications Medications Current Medications Metoprolol Tartrate (Lopressor) 50 mg BID PO Last administered on 11/18/16 08: 29; Admin Dose 50 MG; Start 11/15/16 at 21:00 Miscellaneous Information 1 ea NOTE XX ; Start 11/15/16 at 18:00 Glucose (Glutose) 15 gm Q15M PRN PO DECREASED GLUCOSE; Start 11/15/16 at 18:00 Glucose (Glutose) 22.5 gm Q15M PRN PO DECREASED GLUCOSE; Start 11/15/16 at 18: 00 Dextrose (D50w Syringe) 25 ml Q15M PRN IV DECREASED GLUCOSE; Start 11/15/16 at 18:00 Dextrose (D50w Syringe) 50 ml Q15M PRN IV DECREASED GLUCOSE; Start 11/15/16 at 18:00 Glucagon (Glucagen) 1 mg Q15M PRN IM DECREASED GLUCOSE; Start 11/15/16 at 18:00 Glucose (Glutose) 15 gm Q15M PRN BUCCAL DECREASED GLUCOSE; Start 11/15/16 at 18 :00 Metoclopramide HCl (Reglan) 10 mg Q6 IV Last administered on 11/18/16 12:07; Admin Dose 10 MG; Start 11/16/16 at 00:00 Pantoprazole (Protonix Iv) 40 mg BID@06,18 IV ; Start 11/18/16 at 18:00 Insulin Glargine (Lantus) 15 unit DAILY@08 SC ; Start 11/18/16 at 13:30 Diagnostic Test (Pha) (Accucheck) 1 ea 02 XX ; Start 11/19/16 at 02:00 ALONDRA TOBIAS MD Nov 18, 2016 16:37
--- NOTE | 2016-11-18 17:15 | PN ---
Date/Time of Note Date/Time of Note DATE: 11/18/16 TIME: 16:56 Assessment/Plan VTE Prophylaxis VTE Prophylaxis Intervention: SCD's Lines/Catheters IV [facility] Type [facility]from [facility] Saline Lock Urinary Cath still in place: No Assessment/Plan Assessment/Plan Assessment/Plan Acute anemia EGD: 1. Keerthi-Early tear post endoscopic endoclip placement./Stable Hypertension Management per Primary Type 2 diabetes Management per Primary Plan: switch protonix to po medication appears safe for discharge follow up endoscopy in 8 weeks Subjective 24 Hr Interval Summary Free Text/Dictation course reviewed with nursing staff,patient seen and examined ,denies any hematemesis , hematochezia,vomiting,but still with melena,denies any abdominal pain,but otherwise feeling better,hemoglobin stable at 8.6,patient tolerating diet and on protonix iv Exam/Review of Systems Vital Signs Vitals Vital Signs Date Time Temp Pulse Resp B/P Pulse Ox O2 Delivery O2 Flow Rate FiO2 11/18/16 12:28 60 11/18/16 11:01 98.1 18 145/66 98 11/18/16 04:00 Room Air 11/15/16 18:03 5 Intake and Output 11/17/16 11/17/16 11/18/16 15:00 23:00 07:00 Intake Total 1110 ml 800 ml Balance 1110 ml 800 ml Exam Constitutional: alert, oriented, well developed Psych: nl mood/affect Head: normocephalic Eyes: EOMI, nl conjunctiva, nl lids ENMT: nl external ears & nose, nl lips & teeth, nl nasal mucosa & septum Respiratory: clear to auscultation, normal air movement Cardiovascular: regular rate and rhythm Gastrointestinal: soft, non-tender Musculoskeletal: nl extremities to inspection Neurological: [employer]IE[employer] II-XII intact Results Result Diagram: 11/18/1628 11/18/16727 Results 24 hrs Laboratory Tests Test 11/17/16 17:11 11/17/16 20:53 11/18/16 07:28 11/18/16 07:40 Bedside Glucose 212 343 H 211 Albumin 3.4 Anion Gap 15 Basophils # 0.0 Basophils % 0.5 Blood Urea Nitrogen 11 Calcium Level 8.4 Carbon Dioxide Level 23 Chloride Level 106 Creatinine 0.66 Eosinophils # 0.2 Eosinophils % 3.5 Glucose Level 177 Hematocrit 24.3 L Hemoglobin 8.6 L Lymphocytes # 1.8 Lymphocytes % 32.2 Mean Corpuscular Hemoglobin 32.5 Mean Corpuscular Hemoglobin Concent 35.4 Mean Corpuscular Volume 91.7 Mean Platelet Volume 10.4 Monocytes # 0.6 Monocytes % 10.3 Neutrophils # 3.0 Neutrophils % 53.3 Nucleated Red Blood Cells # 0.0 Nucleated Red Blood Cells % 0.0 Phosphorus Level 2.9 Platelet Count 206 # Potassium Level 3.9 Red Blood Count 2.65 L Red Cell Distribution Width 12.9 Sodium Level 140 White Blood Count 5.7 Test 11/18/16 11:47 Bedside Glucose 421 *H Medications Medications Current Medications Metoprolol Tartrate (Lopressor) 50 mg BID PO Last administered on 11/18/16 08: 29; Admin Dose 50 MG; Start 11/15/16 at 21:00 Miscellaneous Information 1 ea NOTE XX ; Start 11/15/16 at 18:00 Glucose (Glutose) 15 gm Q15M PRN PO DECREASED GLUCOSE; Start 11/15/16 at 18:00 Glucose (Glutose) 22.5 gm Q15M PRN PO DECREASED GLUCOSE; Start 11/15/16 at 18: 00 Dextrose (D50w Syringe) 25 ml Q15M PRN IV DECREASED GLUCOSE; Start 11/15/16 at 18:00 Dextrose (D50w Syringe) 50 ml Q15M PRN IV DECREASED GLUCOSE; Start 11/15/16 at 18:00 Glucagon (Glucagen) 1 mg Q15M PRN IM DECREASED GLUCOSE; Start 11/15/16 at 18:00 Glucose (Glutose) 15 gm Q15M PRN BUCCAL DECREASED GLUCOSE; Start 11/15/16 at 18 :00 Metoclopramide HCl (Reglan) 10 mg Q6 IV Last administered on 11/18/16 12:07; Admin Dose 10 MG; Start 11/16/16 at 00:00 Pantoprazole (Protonix Iv) 40 mg BID@06,18 IV ; Start 11/18/16 at 18:00 Insulin Glargine (Lantus) 15 unit DAILY@08 SC ; Start 11/18/16 at 13:30 Diagnostic Test (Pha) (Accucheck) 1 ea 02 XX ; Start 11/19/16 at 02:00 VIVIEN DEL TORO MD Nov 18, 2016 17:06
[2016-11-18] MEDS: PANTOPRAZOLE 40 MG INJ IV SCH (17:29)
[2016-11-19] MEDS ORDERED: ACCUCHECK XX SCH (02:00)
[2016-11-19] MEDS: PANTOPRAZOLE 40 MG INJ IV SCH (05:53)
[2016-11-19] MEDS: METOCLOPRAMIDE 10 MG INJ IV SCH ×3 (05:53→12:00)
[2016-11-19 06:49] LABS: ADD SCAN DIFF NO
[2016-11-19 06:56] LABS: BASOPHILS % 0.6 % (0.0-2.0); EOSINOPHILS # 0.3 10^3/ul (0.0-0.5); EOSINOPHILS % 4.3 % (0.0-7.0); HEMATOCRIT 27.3 % (42.0-52.0); HEMOGLOBIN 9.4 g/dl (14.0-18.0); LYMPHOCYTES # 2.2 10^3/ul (0.8-2.9); LYMPHOCYTES % 33.1 % (15.0-51.0); MEAN CORPUSCULAR HEMOGLOBIN 31.9 pg (29.0-33.0); MEAN CORPUSCULAR HGB CONC 34.4 g/dl (32.0-37.0); MEAN CORPUSCULAR VOLUME 92.5 fl (82.0-101.0); MEAN PLATELET VOLUME 10.6 fl (7.4-10.4); MONOCYTE # 0.6 10^3/ul (0.3-0.9); MONOCYTES % 9.8 % (0.0-11.0); NEUTROPHIL # 3.4 10^3/ul (1.6-7.5); NEUTROPHILS % 51.9 % (39.0-77.0); PLATELET COUNT 254 10^3/UL (140-415); RED BLOOD COUNT 2.95 10^6/ul (4.70-6.10); RED CELL DISTRIBUTION WIDTH 12.8 % (11.5-14.5); WHITE BLOOD COUNT 6.5 10^3/ul (4.8-10.8)
[2016-11-19 07:04] LABS: INR 0.95; PARTIAL THROMBOPLASTIN TIME 24.4 Sec (25.0-35.0); PROTIME 12.7 Sec (12.2-14.2)
[2016-11-19 07:08] LABS: POTASSIUM 4.3 mmol/L (3.5-5.1)
[2016-11-19 07:10] LABS: CREATININE 0.7 mg/dl (0.61-1.24)
[2016-11-19 07:11] LABS: CALCIUM 9.2 mg/dl (8.4-10.2)
[2016-11-19 07:30] VITALS: BP 161/74; RESP 18
[2016-11-19] MEDS: METOPROLOL 50 MG TAB PO SCH (08:43)
[2016-11-19] MEDS: INSULIN GLARGINE [LANtus] 3 ML PEN SC SCH (08:44)
[2016-11-19] MEDS: INSULIN ASPART [NOVOLOG] 3 ML PEN SC SCH ×4 (09:21→12:14)
--- NOTE | 2016-11-19 11:03 | PN ---
Date/Time of Note Date/Time of Note DATE: 11/19/16 TIME: 11:02 Assessment/Plan VTE Prophylaxis VTE Prophylaxis Intervention: SCD's Lines/Catheters IV [facility] Type [facility]from [facility] Saline Lock Urinary Cath still in place: No Assessment/Plan Assessment/Plan 1. Acute Upper GI bleeding 2. Near syncopal episode secondary to #1. 3. Heavy alcohol use/abuse. 4. Occasional marijuana use. 5. Diabetes mellitus type 2 with suboptimal control. 6. High blood pressure with good control. 7. Reported history of dyslipidemia. 8. History of colon cancer in 2014 status post colonic resection. Plan: s/p 2 units PRBC on protnix gtt - will switch to IV protonix 40mg BID tolerating diet, change accucheck to AC and HS S/p GI consult SCD for DVT prophylaxis possible d/c home today Subjective 24 Hr Interval Summary Free Text/Dictation doing better, tolerating po diet, Exam/Review of Systems Vital Signs Vitals Vital Signs Date Time Temp Pulse Resp B/P Pulse Ox O2 Delivery O2 Flow Rate FiO2 11/19/16 07:30 98.4 58 18 161/74 97 11/18/16 04:00 Room Air 11/15/16 18:03 5 Intake and Output 11/18/16 11/18/16 11/19/16 15:00 23:00 07:00 Intake Total 600 ml 480 ml Balance 600 ml 480 ml Exam GENERAL: He was comfortable, alert and oriented, in no distress. NECK: Supple without JVD. CHEST: Clear to auscultation with mildly reduced air entry bilaterally. CARDIOVASCULAR: S1 and S2, no murmurs. ABDOMEN: Soft, nontender, nondistended with normoactive bowel sounds present. EXTREMITIES: There is no lower extremity edema. Surgical scar on the abdomen well healed. NEUROLOGIC: He had no focal deficits. SKIN: Devoid of rash or jaundice. PSYCHIATRIC: He was calm, cooperative with exam. Results Result Diagram: 11/19/16 0600 11/19/16 0600 Results 24 hrs Laboratory Tests Test 11/18/16 11:47 11/18/16 17:10 11/18/16 21:24 11/19/16 03:07 Bedside Glucose 421 *H 132 218 176 Test 11/19/16 06:00 11/19/16 07:50 Activated Partial Thromboplast Time 24.4 L Anion Gap 15 Basophils # 0.0 Basophils % 0.6 Blood Urea Nitrogen 13 Calcium Level 9.2 Carbon Dioxide Level 27 Chloride Level 103 Creatinine 0.70 Eosinophils # 0.3 Eosinophils % 4.3 Glucose Level 185 Hematocrit 27.3 L Hemoglobin 9.4 L INR International Normalized Ratio 0.95 Lymphocytes # 2.2 Lymphocytes % 33.1 Mean Corpuscular Hemoglobin 31.9 Mean Corpuscular Hemoglobin Concent 34.4 Mean Corpuscular Volume 92.5 Mean Platelet Volume 10.6 H Monocytes # 0.6 Monocytes % 9.8 Neutrophils # 3.4 Neutrophils % 51.9 Nucleated Red Blood Cells # 0.0 Nucleated Red Blood Cells % 0.0 Platelet Count 254 # Potassium Level 4.3 Prothrombin Time 12.7 Prothrombin Time Ratio 1.0 Red Blood Count 2.95 L Red Cell Distribution Width 12.8 Sodium Level 141 White Blood Count 6.5 Bedside Glucose 197 Medications Medications Current Medications Metoprolol Tartrate (Lopressor) 50 mg BID PO Last administered on 11/19/16 08: 43; Admin Dose 50 MG; Start 11/15/16 at 21:00 Miscellaneous Information 1 ea NOTE XX ; Start 11/15/16 at 18:00 Glucose (Glutose) 15 gm Q15M PRN PO DECREASED GLUCOSE; Start 11/15/16 at 18:00 Glucose (Glutose) 22.5 gm Q15M PRN PO DECREASED GLUCOSE; Start 11/15/16 at 18: 00 Dextrose (D50w Syringe) 25 ml Q15M PRN IV DECREASED GLUCOSE; Start 11/15/16 at 18:00 Dextrose (D50w Syringe) 50 ml Q15M PRN IV DECREASED GLUCOSE; Start 11/15/16 at 18:00 Glucagon (Glucagen) 1 mg Q15M PRN IM DECREASED GLUCOSE; Start 11/15/16 at 18:00 Glucose (Glutose) 15 gm Q15M PRN BUCCAL DECREASED GLUCOSE; Start 11/15/16 at 18 :00 Metoclopramide HCl (Reglan) 10 mg Q6 IV Last administered on 11/18/16 17:28; Admin Dose 10 MG; Start 11/16/16 at 00:00 Pantoprazole (Protonix Iv) 40 mg BID@06,18 IV Last administered on 11/19/16 05 :53; Admin Dose 40 MG; Start 11/18/16 at 18:00 Insulin Glargine (Lantus) 15 unit DAILY@08 SC Last administered on 11/19/16t 08 :44; Admin Dose 15 UNIT; Start 11/18/16 at 13:30 Diagnostic Test (Pha) (Accucheck) 1 ea 02 XX ; Start 11/19/16 at 02:00 ALONDRA TOBIAS MD Nov 19, 2016 11:03
--- NOTE | 2016-11-19 11:09 | PDOCDIS ---
Discharge Instructions CONDITION Patient Condition: Good HOME CARE INSTRUCTIONS: Special Diet: Soft consistency regular diet ACTIVITY: Activity Restrictions: Slowly Increase Activity Rest between Activity Avoid heavy lifting Do not operate Power Tool FOLLOW UP/APPOINTMENTS Appointments follow up with Dr.Kalpesh Tobias in 1 week after discharge ALONDRA TOBIAS MD Nov 19, 2016 11:09
[2016-11-19] MEDS ORDERED: METO10TA92 PO (11:11)
[2016-11-19] MEDS ORDERED: PANT40TA4 PO (11:11)
--- NOTE | 2016-11-25 16:46 | DS ---
DATE OF ADMISSION: 11/15/2016 DATE OF DISCHARGE: 11/19/2016 FINAL DIAGNOSES: 1. Upper gastrointestinal bleeding requiring Protonix and octreotide drip. 2. Near syncopal episode secondary to upper gastrointestinal bleeding 3. heavy alcohol use/abuse. 4. Occasional marijuana use. 5. Type 2 diabetes mellitus with suboptimal control. 6. History of hypertension. 7. History of dyslipidemia. 8. History of colon cancer 2013, status post colonic resection. CONSULTATIONS DONE DURING THIS HOSPITALIZATION: GI consult, Dr. Gómez. PROCEDURES PERFORMED DURING THIS HOSPITALIZATION: None. HOSPITAL COURSE: This is a 66-year-old male who has a past medical history of diabetes mellitus typ e 2, hypertension, hyperlipidemia, presented with a near syncopal episode. He is noted to have acti ve upper gastrointestinal bleeding. The patient had a very low hemoglobin for which he required 2 u nits of PRBC transfusion. He also required a Protonix drip and octreotide drip. He had a GI consul tation done by Dr. Gómez. The patient was recommended to have conservative management. He was sta rted gradually slowly back to his normal diet, advanced from full liquid to the soft diet and he was tolerating the diet and his hemoglobin was also stable. He had a physical therapy evaluation done which shows unsteady gait due to the GI bleeding. He was set up for home health upon discharge. He has been advised to follow up with me in outpatient clinic 1 to 2 weeks after discharge. DISPOSITION: To home. DISCHARGE CONDITION: Stable and improved compared to admission. DISCHARGE ACTIVITIES: As tolerated, slowly resume to the normal baseline activity. DISCHARGE DIET: A soft consistency, diabetic ADA low fat, low sodium diet. DISCHARGE MEDICATIONS: As per medical reconciliation. He is given prescription of Protonix 40 mg p .o. daily, Reglan 10 mg p.o. q.6h. p.r.n. nausea, vomiting. DISCHARGE FOLLOWUP AND INSTRUCTIONS: The patient is to follow with Dr. Alondra Tobias in outpatient clinic as a primary care physician in 1 to 2 weeks after discharge. He has been explained about the discharge plan and followup instructions. He understood and verbalized understanding. He is continued on his previous home medications of: 1. Aspirin 81 mg. 2. Glipizide 10 mg p.o. b.i.d. 3. Metformin 1000 mg p.o. b.i.d. 4. Metoprolol 50 mg p.o. b.i.d. Dictated By: ALONDRA TOBIAS MD, KP/PRAKASH Conf#: [id number] DID#: [id number]
== END 2016-11-19 14:13 | disposition still patient (30) | DRG 369 ==
LOC: E/R 13:31 → EDBD 13:31 → TEL 16:28 → PP2 11-18 14:33
PROVIDERS: ADMIT Internal Medicine Pulmonary Disease; ATTEND Internal Medicine Pulmonary Disease
PROC: 0W3P8ZZ Control Bleeding in Gastrointestinal Tract, Via Natural or Artificial Opening Endoscopic (ICD-10-PCS; principal; 2016-11-15 20:00)
PROC: 30233N1 Transfusion of Nonautologous Red Blood Cells into Peripheral Vein, Percutaneous Approach (ICD-10-PCS; 2016-11-16)
DX: K22.6 Gastro-esophageal laceration-hemorrhage syndrome (principal); D62 Acute posthemorrhagic anemia; E11.65 Type 2 diabetes mellitus with hyperglycemia; I10 Essential (primary) hypertension; R55 Syncope and collapse; E78.5 Hyperlipidemia, unspecified; F10.10 Alcohol abuse, uncomplicated; F12.90 Cannabis use, unspecified, uncomplicated; R26.89 Other abnormalities of gait and mobility; Z79.84 Long term (current) use of oral hypoglycemic drugs; Z79.82 Long term (current) use of aspirin; Z90.49 Acquired absence of other specified parts of digestive tract; Z85.038 Personal history of other malignant neoplasm of large intestine
CPT/HCPCS: 36415; 36430; 71010; 80048; 80053; 80061; 80069; 82378; 82962; 83036; 83735; 84484; 85014; 85018; 85025; 85610; 85730; 86850; 86900; 86901; 86920; 93005; 96365; 96375; 96376; C9113; J1815; J2354; J2765; J7030; J7040; P9016